=== PATIENT | male | born 1955 | race Caucasian/White ===

== ENCOUNTER → 2020-11-16 09:36 | Outpatient (BNVA) | payer MEDICARE, MEDICAID, SELFPAY | PROVIDERS: Visit Provider Family Medicine | DX: I10 Essential (primary) hypertension (principal); E78.2 Mixed hyperlipidemia; E07.9 Disorder of thyroid, unspecified; N40.0 Benign prostatic hyperplasia without lower urinary tract symptoms | CPT/HCPCS: 80053; 80061; 84153; 84439; 84443; 85025 ==

== ENCOUNTER → 2021-01-26 10:23 | Outpatient (BNVA) | payer MEDICARE, MEDICAID, SELFPAY | PROVIDERS: PCP Family Medicine; Visit Provider Family Medicine | DX: J32.9 Chronic sinusitis, unspecified (principal); R05 Cough | CPT/HCPCS: 71046 ==

== ENCOUNTER → 2021-02-22 08:35 | Outpatient (BNVA) | payer MEDICARE, MEDICAID, SELFPAY | PROVIDERS: PCP Family Medicine; Visit Provider Family Medicine | DX: E03.9 Hypothyroidism, unspecified (principal); E78.2 Mixed hyperlipidemia | CPT/HCPCS: 80053; 80061; 84439; 84443 ==

== ENCOUNTER 2021-08-23 12:31 | Outpatient (CLI) | payer MEDICARE, MEDICAID, SELFPAY ==
--- NOTE | 2021-08-23 12:37 | XR_ITS ---
WS: [id number] LEFT CALCANEUS TECHNIQUE: Lateral and tangential view. HISTORY: M79.672 - Pain in left foot COMPARISON: None available. No fracture or bone destruction. Very minimal calcific deposit at the Achilles tendon insertion site and at the plantar aponeurosis. No soft tissue abnormalities. XR/XR calcaneus LT min 2V [id number] IMPRESSION: 1. No LEFT calcaneal fracture. 2. Minimal enthesopathy at the plantar aponeurosis and Achilles tendon attachm ent.
== END 2021-08-23 12:32 | disposition home or self-care (01) ==
LOC: RAD 12:35
PROVIDERS: PCP Family Medicine; Visit Provider Nurse Practitioner Family
DX: M79.672 Pain in left foot (principal)
CPT/HCPCS: 73650

== ENCOUNTER → 2021-09-18 09:22 | Outpatient (BNVA) | payer MEDICARE, MEDICAID, SELFPAY | PROVIDERS: PCP Family Medicine; Visit Provider Podiatrist Foot & Ankle Surgery | DX: M79.672 Pain in left foot (principal); Z46.89 Encounter for fitting and adjustment of other specified devices; M72.2 Plantar fascial fibromatosis | CPT/HCPCS: 73630; 97760; L4397 ==

== ENCOUNTER 2021-09-18 11:04 | Outpatient (CLI) | payer MEDICARE, MEDICAID, SELFPAY | END 2021-09-18 11:05 | disposition home or self-care (01) | LOC: SPT 11:05 | PROVIDERS: PCP Family Medicine; Visit Provider Podiatrist Foot & Ankle Surgery | DX: Z46.89 Encounter for fitting and adjustment of other specified devices (principal); M72.2 Plantar fascial fibromatosis | CPT/HCPCS: 97760; L4397 ==

== ENCOUNTER → 2022-06-19 16:49 | Outpatient (BNVA) | payer MEDICARE, MEDICAID, SELFPAY | PROVIDERS: PCP Family Medicine; Visit Provider Nurse Practitioner Family | DX: I10 Essential (primary) hypertension (principal); R10.9 Unspecified abdominal pain; E03.9 Hypothyroidism, unspecified; N40.0 Benign prostatic hyperplasia without lower urinary tract symptoms | CPT/HCPCS: 80053; 80061; 81000; 84153; 84443 ==

== ENCOUNTER → 2022-08-17 09:09 | Outpatient (BNVA) | payer MEDICARE, MEDICAID, SELFPAY | PROVIDERS: PCP Family Medicine; Visit Provider Nurse Practitioner Family | DX: E03.9 Hypothyroidism, unspecified (principal) | CPT/HCPCS: 84443 ==

== ENCOUNTER → 2023-04-15 13:56 | Outpatient (BNVA) | payer MEDICARE, MEDICAID, SELFPAY | PROVIDERS: PCP Family Medicine; Visit Provider Nurse Practitioner Family | DX: S30.860A Insect bite (nonvenomous) of lower back and pelvis, initial encounter (principal); W57.XXXA Bitten or stung by nonvenomous insect and other nonvenomous arthropods, initial encounter | CPT/HCPCS: 86000; 86618; 86666; 86757 ==

== ENCOUNTER → 2023-04-16 14:46 | Outpatient (BNVA) | payer MEDICARE, MEDICAID, SELFPAY | PROVIDERS: PCP Family Medicine; Referring Provider Nurse Practitioner Family; Visit Provider Orthopaedic Surgery | DX: M54.2 Cervicalgia (principal); G89.29 Other chronic pain | CPT/HCPCS: 72050; 99204 ==

== ENCOUNTER 2023-05-29 14:51 | Outpatient (CLI) | payer MEDICARE, MEDICAID, SELFPAY ==
--- NOTE | 2023-05-29 15:15 | MR_ITS ---
WS: [id number] MRI CERVICAL SPINE NONCONTRAST TECHNIQUE: Sagittal T1, T2 and STIR imaging. Axial T2, gradient, and fiesta imaging. CLINICAL INFORMATION: neck pain COMPARISON: None. FINDINGS: Mild cervical curve. Prior ACDF C4-C7. Cord signal is normal. Mild central canal stenosis C3-C4. C2-C3: Mild disc bulging. Mild RIGHT and no significant LEFT foraminal narrowing. Moderate facet arth ropathy. C3-C4: RIGHT pericentral disc osteophyte protrusion with slight contact of the cervical cord. Mild ce ntral canal stenosis. Moderate to severe RIGHT greater than LEFT bony foraminal narrowing. Moderate f acet arthropathy. C4-C5: ACDF. Moderate facet arthropathy. Mild bilateral bony foraminal narrowing. C5-C6: ACDF. Mild bilateral bony foraminal narrowing. Mild facet arthropathy. C6-C7: ACDF. RIGHT pericentral disc osteophyte protrusion with mild central canal stenosis. Moderate RIGHT and no significant LEFT foraminal narrowing. C7-T1: Slight anterolisthesis C7 on T1. Spinal can al and foramen are patent. Mild facet arthropathy. Visualized brain stem structures: Normal. Prevertebral soft tissues: Normal. MR/MR cervical spin wo con* [id number] IMPRESSION: 1. Mild cervical curve. ACDF C4-C7. 2. RIGHT pericentral disc osteophyte protrusion C3-C4 with mild central canal stenosis. Slight indentation on cervical cord. 3. Moderate to severe RIGHT C3-C4 bony foraminal narrowing. Moderate LEFT C3-C 4 bony foraminal narrowing. 4. Moderate RIGHT C6-C7 bony foraminal narrowing.
== END 2023-05-29 14:52 | disposition home or self-care (01) ==
LOC: RAD 14:53
PROVIDERS: PCP Family Medicine; Visit Provider Orthopaedic Surgery
DX: M54.2 Cervicalgia (principal); G89.29 Other chronic pain
CPT/HCPCS: 72141

== ENCOUNTER → 2023-06-07 10:42 | Outpatient (BNVA) | payer MEDICARE, MEDICAID, SELFPAY | PROVIDERS: PCP Family Medicine; Visit Provider Student in an Organized Health Care Education/Training Program | DX: M17.11 Unilateral primary osteoarthritis, right knee; M70.51 Other bursitis of knee, right knee | CPT/HCPCS: 20610; 73560; 73565; 99204; J3301 ==

== ENCOUNTER → 2023-06-27 13:36 | Outpatient (BNVA) | payer MEDICARE, MEDICAID, SELFPAY | PROVIDERS: PCP Family Medicine; Visit Provider Orthopaedic Surgery | DX: M50.323 Other cervical disc degeneration at C6-C7 level; M50.322 Other cervical disc degeneration at C5-C6 level; M50.321 Other cervical disc degeneration at C4-C5 level; M48.02 Spinal stenosis, cervical region; Z98.1 Arthrodesis status | CPT/HCPCS: 99214 ==

== ENCOUNTER → 2023-08-06 10:35 | Outpatient (BNVA) | payer MEDICARE, MEDICAID, SELFPAY | PROVIDERS: PCP Family Medicine; Visit Provider Anesthesiology Pain Medicine | DX: G89.29 Other chronic pain; M50.90 Cervical disc disorder, unspecified, unspecified cervical region; M47.812 Spondylosis without myelopathy or radiculopathy, cervical region; Z98.890 Other specified postprocedural states; M48.02 Spinal stenosis, cervical region | CPT/HCPCS: 99204 ==

== ENCOUNTER → 2023-10-31 09:13 | Outpatient (BNVA) | payer MEDICARE, MEDICAID, SELFPAY | PROVIDERS: PCP Family Medicine; Visit Provider Anesthesiology Pain Medicine | DX: M50.90 Cervical disc disorder, unspecified, unspecified cervical region (principal); M47.812 Spondylosis without myelopathy or radiculopathy, cervical region; G89.29 Other chronic pain; Z98.890 Other specified postprocedural states; M48.02 Spinal stenosis, cervical region | CPT/HCPCS: 99213 ==

== ENCOUNTER 2023-11-28 06:00 | Outpatient (RCR) | payer MEDICARE, MEDICAID, SELFPAY | END 2023-12-11 23:59 | disposition home or self-care (01) | LOC: GPT 06:00 | PROVIDERS: Visit Provider Nurse Practitioner Family | DX: M54.2 Cervicalgia (principal); M47.812 Spondylosis without myelopathy or radiculopathy, cervical region | CPT/HCPCS: 97110; 97140; 97161 ==

== ENCOUNTER 2023-12-12 06:00 | Outpatient (RCR) | payer MEDICARE, MEDICAID, SELFPAY | END 2024-01-09 23:59 | disposition home or self-care (01) | LOC: GPT 06:00 | PROVIDERS: Visit Provider Nurse Practitioner Family | DX: M54.2 Cervicalgia (principal); M47.812 Spondylosis without myelopathy or radiculopathy, cervical region | CPT/HCPCS: 97110; 97140 ==

== ENCOUNTER → 2024-05-19 08:55 | Outpatient (BNVA) | payer MEDICARE, SELFPAY | PROVIDERS: PCP Nurse Practitioner Family; Visit Provider Nurse Practitioner Family | DX: I10 Essential (primary) hypertension (principal); E03.9 Hypothyroidism, unspecified | CPT/HCPCS: 80053; 80061; 84443 ==

== ENCOUNTER → 2024-07-16 08:50 | Outpatient (BNVA) | payer MEDICARE, SELFPAY | PROVIDERS: PCP Nurse Practitioner Family; Visit Provider Nurse Practitioner Family | DX: I10 Essential (primary) hypertension (principal) | CPT/HCPCS: 84443 ==

== ENCOUNTER → 2025-02-16 10:11 | Outpatient (BNVA) | payer MEDICARE, SELFPAY | PROVIDERS: PCP Nurse Practitioner Family; Visit Provider Nurse Practitioner Family | DX: I10 Essential (primary) hypertension (principal); E03.9 Hypothyroidism, unspecified; N40.0 Benign prostatic hyperplasia without lower urinary tract symptoms | CPT/HCPCS: 73140; 73562; 80053; 80061; 84153; 84443 ==

== ENCOUNTER → 2025-03-30 08:40 | Outpatient (BNVA) | payer MEDICARE, SELFPAY | PROVIDERS: PCP Nurse Practitioner Family; Visit Provider Nurse Practitioner Family | DX: E03.9 Hypothyroidism, unspecified (principal) | CPT/HCPCS: 84443 ==

== ENCOUNTER → 2025-05-11 10:20 | Outpatient (BNVA) | payer MEDICARE, SELFPAY | PROVIDERS: PCP Nurse Practitioner Family; Visit Provider Nurse Practitioner Family | DX: L57.8 Other skin changes due to chronic exposure to nonionizing radiation (principal); L82.1 Other seborrheic keratosis; D23.71 Other benign neoplasm of skin of right lower limb, including hip; L91.8 Other hypertrophic disorders of the skin; L73.8 Other specified follicular disorders | CPT/HCPCS: 11102; 17000; 99203 ==

== ENCOUNTER → 2025-06-02 10:18 | Outpatient (BNVA) | payer MEDICARE, SELFPAY | PROVIDERS: PCP Nurse Practitioner Family; Visit Provider Specialist | DX: M17.11 Unilateral primary osteoarthritis, right knee (principal); M70.51 Other bursitis of knee, right knee; M21.40 Flat foot [pes planus] (acquired), unspecified foot | CPT/HCPCS: 73560; 73565; 99205 ==

== ENCOUNTER → 2025-06-09 09:51 | Outpatient (BNVA) | payer MEDICARE, SELFPAY | PROVIDERS: PCP Nurse Practitioner Family; Visit Provider Dermatology | DX: D23.72 Other benign neoplasm of skin of left lower limb, including hip (principal); L73.8 Other specified follicular disorders; L11.1 Transient acantholytic dermatosis [Grover]; L82.1 Other seborrheic keratosis; L81.4 Other melanin hyperpigmentation; C44.519 Basal cell carcinoma of skin of other part of trunk | CPT/HCPCS: 17262; 99214 ==

== ENCOUNTER → 2025-10-20 10:17 | Outpatient (BNVA) | payer MEDICARE, SELFPAY | PROVIDERS: PCP Nurse Practitioner Family; Visit Provider Nurse Practitioner Family | DX: R50.9 Fever, unspecified (principal) | CPT/HCPCS: 87071; 87400; 87426; 87880 ==